=== PATIENT | male | born 1955 | race Caucasian/White ===

== ENCOUNTER 2016-06-20 16:54 | Inpatient (IN) | payer OTHER ==
[~2016-06-20] VITALS: Ht 177.8 cm; Wt 100.2 kg
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
[2016-06-20 16:55] VITALS: BP 109/89
[2016-06-20 17:19] LABS: ABSOLUTE NEUTROPHILS 10.3 thou/uL (1.4-8.2); BASOPHILS 0.7 % (0.0-2.0); EOSINOPHILS 0.9 % (0.0-3.0); HEMATOCRIT 31.7 % (42.0-52.0); HEMOGLOBIN 10.3 gm/dL (14.0-18.0); LYMPHOCYTES 9.6 % (24.0-44.0); MCH 25.1 pg (26.0-34.0); MCHC 32.6 g/dL (28.0-37.0); MONOCYTES 4.4 % (1.0-8.0); PLATELET COUNT 366 thou/uL (150-400); POLYS 84.4 % (36.0-66.0); RBC 4.11 mil/uL (4.50-6.00); RDW 14.1 % (10.5-14.5); WBC 12.2 thou/uL (4.0-11.0)
[2016-06-20 17:20] LABS: MANUAL DIFF NO
[2016-06-20 17:32] LABS: CALCIUM 8.9 mg/dL (8.5-10.1)
[2016-06-20 17:45] LABS: URINE BILIRUBIN NEGATIVE (Negative); URINE BLOOD 3+ (Negative); URINE COLOR YELLOW; URINE GLUCOSE-RANDOM* 3+ (Negative); URINE KETONES NEGATIVE (Negative); URINE LEUKOCYTES-REFLEX 1+ (Negative); URINE PROTEIN (DIPSTICK) 2+ (Negative); URINE SPECIFIC GRAVITY 1.025 (1.003-1.035); URINE UROBILINOGEN 0.2 E.U./dl (0.2-1.0)
[2016-06-20 17:52] LABS: SQUAMOUS None Seen /LPF (0-3); URINE WBC-REFLEX >25 Many /HPF (0-5)
[2016-06-20 17:53] LABS: CASTS None Seen /LPF (None Seen); CRYSTALS None Seen /LPF (None Seen)
[2016-06-20 17:54] LABS: YEAST-REFLEX Present (None Seen)
[2016-06-20 19:57] VITALS: BP 102/56
[2016-06-20 20:31] VITALS: BP 97/47
[2016-06-21 03:28] LABS: ABSOLUTE NEUTROPHILS 7.9 thou/uL (1.4-8.2); BASOPHILS 0.7 % (0.0-2.0); EOSINOPHILS 3.2 % (0.0-3.0); HEMATOCRIT 31.5 % (42.0-52.0); LYMPHOCYTES 19.2 % (24.0-44.0); MCH 24.1 pg (26.0-34.0); MCHC 31.6 g/dL (28.0-37.0); MCV 76.4 fL (80.0-100.0); MONOCYTES 2.9 % (1.0-8.0); PLATELET COUNT 349 thou/uL (150-400); RBC 4.13 mil/uL (4.50-6.00); RDW 14.4 % (10.5-14.5); WBC 10.7 thou/uL (4.0-11.0)
[2016-06-21 03:30] LABS: MANUAL DIFF NO
[2016-06-21 03:39] LABS: ALBUMIN 2.4 g/dL (3.4-5.0); ALKALINE PHOSPHATASE 203 U/L (46-116); ANION GAP 12 mmol/L (7-16); BUN 36 mg/dL (7-18); CALCIUM 8.3 mg/dL (8.5-10.1); CHLORIDE 98 mmol/L (98-107); CHOLESTEROL 133 mg/dL (<200); CO2 25 mmol/L (21-32); CREATININE 1.8 mg/dL (0.7-1.3); GLUCOSE 318 mg/dL (74-106); HDL CHOLESTEROL 36 mg/dL (>40); LDL CHOLESTEROL 61 mg/dL (<100); MAGNESIUM 2.1 mg/dL (1.8-2.4); POTASSIUM 3.4 mmol/L (3.5-5.1); SGOT 14 U/L (15-37); SGPT 14 U/L (30-65); TC:HDL 3.7 Ratio (Not establshd); TOTAL BILIRUBIN 0.2 mg/dL (<0.1-1.0); TOTAL PROTEIN 7.8 g/dL (6.4-8.2); TRIGLYCERIDE 181 mg/dL (<150); VLDL 36 mg/dL (<40)
[2016-06-21 03:40] LABS: SODIUM 135 mmol/L (136-145)
[2016-06-21 05:00] VITALS: BP 102/64
[2016-06-21 07:16] VITALS: BP 96/42
[2016-06-21 14:13] VITALS: BP 105/55
[2016-06-21 21:35] VITALS: BP 76/44
[2016-06-22] VITALS (7 sets, daily range): BP systolic 98–158; BP diastolic 48–76
[2016-06-22 01:05] LABS: GLYCOHEMOGLOBIN (HGB A1C) 15.2 % (4.8-5.6)
[2016-06-22 05:33] LABS: BASOPHILS 1.1 % (0.0-2.0); HEMATOCRIT 30.6 % (42.0-52.0); LYMPHOCYTES 25.2 % (24.0-44.0); MCHC 32.7 g/dL (28.0-37.0); MCV 76.4 fL (80.0-100.0); MONOCYTES 6.3 % (1.0-8.0); PLATELET COUNT 356 thou/uL (150-400); POLYS 61.4 % (36.0-66.0); RDW 14.6 % (10.5-14.5); WBC 6.6 thou/uL (4.0-11.0)
[2016-06-22 05:41] LABS: MANUAL DIFF NO
[2016-06-22 06:02] LABS: CREATININE 1.7 mg/dL (0.7-1.3); POTASSIUM 3.9 mmol/L (3.5-5.1)
[2016-06-22 23:10] LABS: CREATININE (ALB/CR) 39.4 mg/dL (Not Estab.); MICROALB:CREAT 427.2 (0.0-30.0); MICROALBUMIN-RND URINE 168.3 ug/mL (Not Estab.)
[2016-06-23 03:35] VITALS: BP 162/83
[2016-06-23 05:53] LABS: ABSOLUTE NEUTROPHILS 2.8 thou/uL (1.4-8.2); EOSINOPHILS 5.6 % (0.0-3.0); HEMATOCRIT 27.7 % (42.0-52.0); HEMOGLOBIN 9.2 gm/dL (14.0-18.0); LYMPHOCYTES 31.7 % (24.0-44.0); MCH 25.3 pg (26.0-34.0); MCHC 33.2 g/dL (28.0-37.0); MCV 76.4 fL (80.0-100.0); MONOCYTES 7.7 % (1.0-8.0); PLATELET COUNT 326 thou/uL (150-400); RBC 3.63 mil/uL (4.50-6.00); RDW 14.8 % (10.5-14.5); WBC 5.2 thou/uL (4.0-11.0)
[2016-06-23 06:06] LABS: MANUAL DIFF NO
[2016-06-23 06:09] LABS: CREATININE 1.6 mg/dL (0.7-1.3); POTASSIUM 4.1 mmol/L (3.5-5.1)
[2016-06-23 08:00] VITALS: BP 112/59
[2016-06-23 12:00] VITALS: BP 146/69
[2016-06-23 12:38] LABS: URINE BILIRUBIN NEGATIVE (Negative); URINE BLOOD 1+ (Negative); URINE COLOR YELLOW; URINE GLUCOSE-RANDOM* 3+ (Negative); URINE KETONES NEGATIVE (Negative); URINE LEUKOCYTES-REFLEX 2+ (Negative); URINE PROTEIN (DIPSTICK) NEGATIVE (Negative); URINE UROBILINOGEN 0.2 E.U./dl (0.2-1.0)
[2016-06-23 12:44] LABS: CASTS None Seen /LPF (None Seen); SQUAMOUS None Seen /LPF (0-3); URINE RBC 3-10 Few /HPF (0-2); YEAST-REFLEX Present (None Seen)
[2016-06-23 12:51] LABS: CRYSTALS None Seen /LPF (None Seen)
[2016-06-23 16:00] VITALS: BP 145/68
[2016-06-23 19:26] VITALS: BP 115/51
[2016-06-24 04:05] VITALS: BP 159/75
[2016-06-24 05:39] LABS: CALCIUM 8.4 mg/dL (8.5-10.1); CREATININE 1.6 mg/dL (0.7-1.3); POTASSIUM 4.2 mmol/L (3.5-5.1)
[2016-06-24 08:43] VITALS: BP 90/51
[2016-06-24 12:33] VITALS: BP 93/53
[2016-06-24 16:25] VITALS: BP 137/67
[2016-06-24 20:40] VITALS: BP 122/59
[2016-06-25 04:00] VITALS: BP 124/78
[2016-06-25 05:45] LABS: ABSOLUTE NEUTROPHILS 3.4 thou/uL (1.4-8.2); BASOPHILS 1.2 % (0.0-2.0); HEMATOCRIT 28.5 % (42.0-52.0); HEMOGLOBIN 9.4 gm/dL (14.0-18.0); LYMPHOCYTES 36.9 % (24.0-44.0); MCH 25.3 pg (26.0-34.0); MCV 76.7 fL (80.0-100.0); MONOCYTES 8.1 % (1.0-8.0); PLATELET COUNT 328 thou/uL (150-400); POLYS 48.8 % (36.0-66.0); RBC 3.71 mil/uL (4.50-6.00); RDW 15.1 % (10.5-14.5); WBC 7.1 thou/uL (4.0-11.0)
[2016-06-25 05:54] LABS: MANUAL DIFF NO
[2016-06-25 06:05] LABS: CALCIUM 8.2 mg/dL (8.5-10.1); CREATININE 1.4 mg/dL (0.7-1.3)
[2016-06-25 08:00] VITALS: BP 125/78
[2016-06-25] MEDS ORDERED: CEFPODOXIME PR200 M1 PO (11:12)
[2016-06-25] MEDS ORDERED: CIPRO500 MG PO (11:12)
[2016-06-25] MEDS ORDERED: HUMALOG100 UNIT/1 SUBQ (11:12)
[2016-06-25] MEDS ORDERED: LANTUS SOL100 UNIT/1 SUBQ (11:12)
[2016-06-25 11:17] VITALS: BP 125/78
[2016-06-25 12:11] VITALS: BP 94/57
[2016-06-25 14:45] VITALS: BP 125/78
== END 2016-06-25 13:45 | disposition home or self-care (01) | DRG 698 ==
LOC: ER 16:54 → 4S 18:06 → EROBS 18:06 → 4S 19:46
PROVIDERS: Emergency Medicine; Internal Medicine Endocrinology, Diabetes & Metabolism; Nurse Practitioner
DX: T83.518A Infection and inflammatory reaction due to other urinary catheter, initial encounter (principal); E43 Unspecified severe protein-calorie malnutrition; N17.9 Acute kidney failure, unspecified; N39.0 Urinary tract infection, site not specified; E87.1 Hypo-osmolality and hyponatremia; G82.20 Paraplegia, unspecified; E11.65 Type 2 diabetes mellitus with hyperglycemia; E86.0 Dehydration; B96.5 Pseudomonas (aeruginosa) (mallei) (pseudomallei) as the cause of diseases classified elsewhere; I12.9 Hypertensive chronic kidney disease with stage 1 through stage 4 chronic kidney disease, or unspecified chronic kidney disease; N18.3 Chronic kidney disease, stage 3 (moderate); E11.22 Type 2 diabetes mellitus with diabetic chronic kidney disease; L89.90 Pressure ulcer of unspecified site, unspecified stage; E87.6 Hypokalemia; E66.9 Obesity, unspecified; Z68.31 Body mass index [BMI] 31.0-31.9, adult; Z91.14 Patient's other noncompliance with medication regimen; Z86.718 Personal history of other venous thrombosis and embolism; Z88.2 Allergy status to sulfonamides
CPT/HCPCS: 10100